=== PATIENT | female | born 1990 | race Caucasian/White ===

== ENCOUNTER 2018-05-18 09:28 | Inpatient (IN) | payer MEDICAID ==
[~2018-05-18] VITALS: Ht 167.6 cm; Wt 149.0 kg
[2018-05-18] MEDS ORDERED: SODIUM CHLORIDE 0.9% 1,000 ML IV ONE ×2 (09:47)
[2018-05-18 10:13] LABS: Basophils # (auto) 0 uL; Basophils % (auto) 0.5 % (0.0-2.0); Eosinophils # (auto) 0.1 uL; Eosinophils % (auto) 1.4 % (0.0-7.0); Hematocrit 46.7 % (36.0-46.0); Hemoglobin 15.9 g/dL (12.2-16.2); Lymphocytes # (auto) 2.3 uL; Lymphocytes % (auto) 32.2 % (10.0-50.0); Mean Corpuscular Hemoglobin 31.1 pg (28.0-32.0); Mean Corpuscular Volume 91.5 fL (80.0-100.0); Monocytes # (auto) 0.5 uL; Monocytes % (auto) 7.2 % (0.0-12.0); Neutrophils # (auto) 4.1 uL; Neutrophils % (auto) 58.7 % (37.0-80.0); Platelet Count (auto) 263 10^3/uL (140-450); Red Blood Cells 5.11 10^6/uL (4.0-5.20); Red Cell Distribution Width 13.5 % (11.8-14.3)
[2018-05-18 10:20] LABS: Albumin 3.5 g/dL (3.4-5.0); Calcium 8.9 mg/dL (8.5-10.1); Potassium 3.9 mmol/L (3.5-5.1)
[2018-05-18 10:21] LABS: INR 1.1 (0.9-1.15); Partial Thromboplastin Time 39.7 sec (23.78-33.04); Prothrombin Time 11.7 sec (9.27-12.13)
[2018-05-18 10:23] LABS: BUN/Creatinine Ratio 14.7; Bilirubin, Total 0.5 mg/dL (0.2-1.0); Total Protein 6.5 g/dL (6.4-8.2)
[2018-05-18] MEDS ORDERED: KETOROLAC TROMETH 30 MG/ML 1ML VIAL IV ONE (10:45)
[2018-05-18] MEDS ORDERED: TAMSULOSIN HYDROCHLORIDE 0.4 MG CAP PO ONE (10:45)
[2018-05-18 10:53] LABS: Urine Bacteria NONE SEEN /hpf (None Seen); Urine Blood 1+ /uL (Negative); Urine Specific Gravity 1.003 (1.001-1.035); Urine WBC 1 /hpf (0 - 5)
[2018-05-18] MEDS ORDERED: ACETAMINOPHEN 500 MG TAB PO PRN (11:30)
[2018-05-18] MEDS ORDERED: PROMETHAZINE HCL 25 MG/ML 1ML IV PRN (11:30)
[2018-05-18] MEDS ORDERED: cefTRIAXone 1GM/50ML D5W 50 ML IV ONE (11:30)
[2018-05-18] MEDS ORDERED: LORazepam 0.5 MG TAB PO PRN (11:30)
[2018-05-18] MEDS ORDERED: traMADol HCL 50 MG TAB PO PRN (11:30)
[2018-05-18] MEDS ORDERED: TEMAZEPAM 15 MG CAP PO PRN (11:30)
[2018-05-18] MEDS: SODIUM CHLORIDE 0.9% 1,000 ML IV SCH (11:37)
[2018-05-18 14:58] VITALS: BP 146/87
[2018-05-18] MEDS ORDERED: RIVA20TA PO (15:16)
[2018-05-18 17:00] VITALS: BP 125/69
[2018-05-18] MEDS ORDERED: RIVAROXABAN 20 MG TAB PO SCH (18:00)
[2018-05-18] MEDS: KETOROLAC TROMETH 30 MG/ML 1ML VIAL IV PRN (18:29)
[2018-05-18 21:46] VITALS: BP 109/71
[2018-05-18] MEDS: FAMOTIDINE 20 MG TAB PO SCH (22:00)
[2018-05-19 05:15] VITALS: BP 104/82
[2018-05-19] MEDS: SODIUM CHLORIDE 0.9% 1,000 ML IV SCH ×3 (05:28→17:27)
[2018-05-19] MEDS: RIVAROXABAN 20 MG TAB PO SCH (07:55)
[2018-05-19] MEDS: KETOROLAC TROMETH 30 MG/ML 1ML VIAL IV PRN ×3 (07:55→20:53)
[2018-05-19] MEDS: cefTRIAXone 1GM/50ML D5W 50 ML IV SCH (08:56)
[2018-05-19] MEDS: FAMOTIDINE 20 MG TAB PO SCH ×2 (08:56→22:19)
[2018-05-19 09:22] VITALS: BP 125/78
[2018-05-19] MEDS ORDERED: PREN-96 PO (11:09)
[2018-05-19] MEDS ORDERED: POTA99TA PO (11:48)
[2018-05-19] MEDS ORDERED: TAMSULOSIN HYDROCHLORIDE 0.4 MG CAP PO ONE (12:15)
[2018-05-19] MEDS ORDERED: MANNITOL 20% SOLN 100 gm/500ml 62.5 ML IV ONE (12:15)
[2018-05-19 13:18] VITALS: BP 124/77
[2018-05-19 17:03] VITALS: BP 118/74
[2018-05-19] MEDS ORDERED: TAMSULOSIN HYDROCHLORIDE 0.4 MG CAP PO SCH (18:00)
[2018-05-19 22:00] VITALS: BP 118/65
[2018-05-20] MEDS: SODIUM CHLORIDE 0.9% 1,000 ML IV SCH (00:05)
[2018-05-20 05:20] VITALS: BP 109/72
[2018-05-20 06:33] LABS: Basophils # (auto) 0 uL; Basophils % (auto) 0.4 % (0.0-2.0); Eosinophils # (auto) 0.2 uL; Eosinophils % (auto) 3.9 % (0.0-7.0); Hematocrit 42.2 % (36.0-46.0); Hemoglobin 14.5 g/dL (12.2-16.2); Lymphocytes # (auto) 2.7 uL; Lymphocytes % (auto) 42.8 % (10.0-50.0); Mean Corpuscular Hemoglobin 31.4 pg (28.0-32.0); Mean Corpuscular Hgb Conc. 34.3 g/dL (32.0-36.0); Mean Corpuscular Volume 91.4 fL (80.0-100.0); Monocytes # (auto) 0.5 uL; Monocytes % (auto) 7.6 % (0.0-12.0); Neutrophils # (auto) 2.9 uL; Neutrophils % (auto) 45.3 % (37.0-80.0); Nucleated Red Blood Cells % 0.1 %; Platelet Count (auto) 243 10^3/uL (140-450); Red Blood Cells 4.62 10^6/uL (4.0-5.20); Red Cell Distribution Width 13.3 % (11.8-14.3); White Blood Cell 6.4 10^3/uL (4.4-10.8)
[2018-05-20 06:47] LABS: BUN/Creatinine Ratio 14.1; Calcium 8.1 mg/dL (8.5-10.1); Potassium 3.8 mmol/L (3.5-5.1)
[2018-05-20 08:21] VITALS: BP 141/72
[2018-05-20] MEDS: cefTRIAXone 1GM/50ML D5W 50 ML IV SCH (08:39)
[2018-05-20] MEDS: FAMOTIDINE 20 MG TAB PO SCH (08:39)
[2018-05-20] MEDS: RIVAROXABAN 20 MG TAB PO SCH (08:39)
[2018-05-20] MEDS: KETOROLAC TROMETH 30 MG/ML 1ML VIAL IV PRN (08:44)
[2018-05-20 12:04] VITALS: BP 141/89
[2018-05-20 12:13] VITALS: BP 141/72
== END 2018-05-20 12:55 | disposition home or self-care (01) | DRG 465 ==
LOC: ER 09:28 → OVERFLOW 11:22 → EAST 14:38
PROVIDERS: ADMIT Internal Medicine; ATTEND Internal Medicine
DX: N13.2 Hydronephrosis with renal and ureteral calculous obstruction (principal); D68.59 Other primary thrombophilia; F32.9 Major depressive disorder, single episode, unspecified; E66.01 Morbid (severe) obesity due to excess calories; Z68.43 Body mass index [BMI] 50.0-59.9, adult; Z80.41 Family history of malignant neoplasm of ovary; Z83.3 Family history of diabetes mellitus; Z86.718 Personal history of other venous thrombosis and embolism; Z86.711 Personal history of pulmonary embolism; Z87.442 Personal history of urinary calculi; Z90.89 Acquired absence of other organs
CPT/HCPCS: 36415; 74176; 80048; 80053; 81001; 85025; 85610; 85730; 87086; 96361; 96374; 96375; G0378; J0696; J1885

== ENCOUNTER 2020-09-07 19:04 | Emergency (ER) | payer MEDICAID ==
[~2020-09-07] VITALS: Ht 167.6 cm; Wt 146.1 kg
[~2020-09-07 19:04] MED LIST: POTA99TA3 PO; PREN-96 PO; RIVA20TA PO
[2020-09-07] MEDS ORDERED: HYDROcodone-ACET 5/325MG TAB PO ONE (21:30)
[2020-09-07] MEDS: MORPHINE SULFATE 10 MG/ML INJ 1ML SDV IV ONE ×2 (23:30→23:55)
[2020-09-07] MEDS ORDERED: ONDANSETRON HCL 4 MG/2 ML VIAL IV ONE (23:30)
[2020-09-07] MEDS ORDERED: MORPHINE SULFATE 4 MG/ML SYR/VIAL IV ONE (23:45)
[2020-09-08 01:22] VITALS: BP 105/61
== END 2020-09-08 03:00 | disposition home or self-care (01) ==
LOC: EDBD 19:04 → ER 19:07
DX: M25.571 Pain in right ankle and joints of right foot (principal); R22.41 Localized swelling, mass and lump, right lower limb; F32.9 Major depressive disorder, single episode, unspecified; Z87.442 Personal history of urinary calculi; Z87.440 Personal history of urinary (tract) infections; Z86.711 Personal history of pulmonary embolism; Z79.899 Other long term (current) drug therapy
CPT/HCPCS: 73600; 93971; 96374; 96375; 99284; J2270; J2405